=== PATIENT | female | born 1995 | race Caucasian/White ===

== ENCOUNTER → 2019-06-08 | Outpatient (REF) | payer OTHER ==
[~2019-06-08] MED LIST: RALT40TA PO; TRUVTAB PO
[2019-06-08 11:00] LABS: BASO # 0.1 10^3/uL (0.0-0.2); BASO % 0.6 % (0.0-1.0); EOS # 0.1 10^3/uL (0.0-0.5); EOS % 0.6 % (0.0-3.0); HEMATOCRIT 46.1 % (36.0-47.0); HEMOGLOBIN 14.4 g/dl (12.0-15.5); LYMPH # 2.2 10^3/uL (1.5-5.0); LYMPH % 21.4 % (24.0-44.0); MEAN CORPUSCULAR HEMOGLOBIN 28.1 pg (27.0-33.0); MEAN CORPUSCULAR HGB CONC 31.2 g/dl (32.0-36.5); MONO # 0.6 10^3/uL (0.0-0.8); MONO % 5.9 % (0.0-5.0); NEUTROPHILS # 7.2 10^3/uL (1.5-8.5); NEUTROPHILS % 71.2 % (36.0-66.0); PLATELET COUNT, AUTOMATED 268 10^3/uL (150-450); RED BLOOD COUNT 5.12 10^6/uL (4.00-5.40); WHITE BLOOD COUNT 10.1 10^3/uL (4.0-10.0)
[2019-06-08 11:20] LABS: ALBUMIN 4.2 GM/DL (3.2-5.2); ALT/SGPT 36 U/L (12-78); BILIRUBIN,TOTAL 0.8 MG/DL (0.2-1.0); BLOOD UREA NITROGEN 10 MG/DL (7-18); CARBON DIOXIDE LEVEL 30 MEQ/L (21-32); CHLORIDE LEVEL 108 MEQ/L (98-107); CREATININE FOR GFR 0.71 MG/DL (0.55-1.30); GLOMERULAR FILTRATION RATE > 60.0 (>60); GLUCOSE, FASTING 86 MG/DL (70-100); POTASSIUM SERUM 4.3 MEQ/L (3.5-5.1); SODIUM LEVEL 143 MEQ/L (136-145); TOTAL PROTEIN 7.8 GM/DL (6.4-8.2)
[2019-06-08 11:38] LABS: HEPATITIS B SURFACE ANTIGEN NEGATIVE (NEGATIVE)
[2019-06-08 12:06] LABS: HEPATITIS C VIRUS ABY INDEX 0.1 INDEX (<0.8)
[2019-06-08 12:07] LABS: HIV 1&2 SCREEN CENTAUR NEGATIVE (NEGATIVE)
== END ==
LOC: M SFHCPLAZ 08:33
PROVIDERS: ATTEND Internal Medicine Infectious Disease
DX: T74.21XA Adult sexual abuse, confirmed, initial encounter (principal)

== ENCOUNTER → 2020-08-25 | Outpatient (REF) | payer OTHER ==
[2020-08-25 16:14] LABS: CHLAMYDIA DNA AMPLIFICATION NEGATIVE (NEGATIVE); GC DNA AMPLIFICATION NEGATIVE (NEGATIVE)
== END ==
LOC: M SFHCWAGY 13:37
PROVIDERS: ATTEND Nurse Practitioner Women's Health
DX: Z11.3 Encounter for screening for infections with a predominantly sexual mode of transmission (principal)

== ENCOUNTER → 2020-08-25 | Outpatient (REF) | payer OTHER | LOC: M SFHCWAGY 13:41 | PROVIDERS: ATTEND Nurse Practitioner Women's Health | DX: Z12.4 Encounter for screening for malignant neoplasm of cervix (principal) ==

== ENCOUNTER 2021-01-22 20:45 | Day surgery (SDC) | payer OTHER ==
[~2021-01-22] VITALS: Ht 170.2 cm; Wt 122.2 kg
[~2021-01-22 20:45] MED LIST changes: +EMTR1TAB16 PO; -TRUVTAB PO
[2021-01-22] MEDS ORDERED: MAPA500C PO (21:02)
[2021-01-22] MEDS ORDERED: MIDOTAB PO (21:02)
[2021-01-22 21:48] LABS: BASO # 0.1 10^3/uL (0.0-0.2); BASO % 0.6 % (0.0-1.0); EOS # 0.1 10^3/uL (0.0-0.5); EOS % 0.5 % (0.0-3.0); HEMOGLOBIN 14.2 g/dl (12.0-15.5); LYMPH % 18.7 % (24.0-44.0); MEAN CORPUSCULAR HEMOGLOBIN 27.6 pg (27.0-33.0); MEAN CORPUSCULAR HGB CONC 32.3 g/dl (32.0-36.5); MEAN CORPUSCULAR VOLUME 85.6 fl (80.0-96.0); MONO # 0.8 10^3/uL (0.0-0.8); MONO % 4.6 % (2.0-8.0); NEUTROPHILS # 12.3 10^3/uL (1.5-8.5); NEUTROPHILS % 75.1 % (36.0-66.0); PLATELET COUNT, AUTOMATED 290 10^3/uL (150-450); RED BLOOD COUNT 5.14 10^6/uL (4.00-5.40); WHITE BLOOD COUNT 16.3 10^3/uL (4.0-10.0)
[2021-01-22 22:16] LABS: HCG, SERUM QUALITATIVE NEGATIVE (NEGATIVE)
[2021-01-22 22:23] LABS: ALBUMIN 4.1 GM/DL (3.2-5.2); ALT/SGPT 68 U/L (12-78); BILIRUBIN,DIRECT 0.1 MG/DL (0.0-0.2); BILIRUBIN,TOTAL 0.6 MG/DL (0.2-1.0); BLOOD UREA NITROGEN 9 MG/DL (7-18); CALCIUM LEVEL 9.1 MG/DL (8.5-10.1); CARBON DIOXIDE LEVEL 24 MEQ/L (21-32); CHLORIDE LEVEL 108 MEQ/L (98-107); CREATININE FOR GFR 0.62 MG/DL (0.55-1.30); GLOMERULAR FILTRATION RATE > 60.0 (>60); GLUCOSE, FASTING 89 MG/DL (70-100); LIPASE 59 U/L (73-393); POTASSIUM SERUM 3.8 MEQ/L (3.5-5.1); SODIUM LEVEL 140 MEQ/L (136-145); TOTAL PROTEIN 7.5 GM/DL (6.4-8.2)
[2021-01-22] MEDS ORDERED: GI COCKTAIL 50ML BTL(HYOSCYAMINE/MAALOX/LIDOCAINE VISCOUS)(1:3:1) PO ONE (22:55)
[2021-01-22] MEDS ORDERED: NS 1,000 ML IV ONE (23:00)
[2021-01-22] MEDS ORDERED: PROMETHAZINE INJ 25 MG/ML VIAL (J2550) IV ONE (23:40)
[2021-01-23] MEDS: GASTROGRAFIN SOLUTION 30ML PO SCH ×2 (00:29→00:47)
[2021-01-23] MEDS: MORPHINE 2 MG/ML 1ML VIAL (J2270) IV PRN ×2 (00:29→04:03)
[2021-01-23] MEDS ORDERED: ISOVUE-370 76% 100ML VIAL As Ordered ONE (01:38)
--- NOTE | 2021-01-23 02:59 | REPVR ---
PROCEDURE INFORMATION: Exam: CT Abdomen And Pelvis With Contrast Exam date and time: 01/23/2021 1:45 AM Age: 25 years old Clinical indication: Abdominal pain; Epigastric; Additional info: Epigastric pain TECHNIQUE: Imaging protocol: Computed tomography of the abdomen and pelvis with contrast. Radiation optimization: All CT scans at this facility use at least one of these dose optimization techniques: automated exposure control; mA and/or kV adjustment per patient size (includes targeted exams where dose is matched to clinical indication); or iterative reconstruction. Contrast material: ISOVUE 370; Contrast volume: 100 ml; Contrast route: INTRAVENOUS (IV); COMPARISON: No relevant prior studies available. FINDINGS: Liver: Hepatomegaly and steatosis. 1.6 cm hyperattenuating lesion in the left hepatic lobe Gallbladder and bile ducts: Cholelithiasis. Gallbladder is distended and demonstrates wall thickening and pericholecystic fat stranding. There is hyperemia in the adjacent liver parenchyma. Suspect acute cholecystitis. Pancreas: Normal. No ductal dilation. Spleen: Normal. No splenomegaly. Adrenal glands: Normal. No mass. Kidneys and ureters: Normal. No hydronephrosis. Stomach and bowel: Unremarkable. No obstruction. No mucosal thickening. Appendix: No evidence of appendicitis. Intraperitoneal space: Unremarkable. No free air. No significant fluid collection. Vasculature: Unremarkable. No abdominal aortic aneurysm. Lymph nodes: Unremarkable. No enlarged lymph nodes. Urinary bladder: Unremarkable as visualized. Reproductive: Unremarkable as visualized. Bones/joints: Bilateral L5 pars interarticularis defects. Mild degenerative disease at L5-S1. Soft tissues: Unremarkable. Other findings: The study is degraded by motion. IMPRESSION: The study is degraded by motion. Cholelithiasis and findings concerning for acute cholecystitis. Hepatomegaly and steatosis. 1.6 cm hyperattenuating lesion in the left hepatic lobe No bowel obstruction. Normal appendix. No hydronephrosis or nephrolithiasis bilaterally. Electronically signed by: Beau De Leon On 01/23/2021 02:58:22 AM
[2021-01-23] MEDS ORDERED: PIPERACILLIN/TAZOBACTAM SOD 3.375 GM in D5W MINI-BAG PLUS 50 ML IV ONE (03:45)
[2021-01-23] MEDS ORDERED: NS 500 ML IV ONE (03:50)
--- NOTE | 2021-01-23 03:53 | REPVR ---
PROCEDURE INFORMATION: Exam: US Abdomen, Limited; Right Upper Quadrant Exam date and time: 01/23/2021 3:28 AM Age: 25 years old Clinical indication: Abdominal pain; Acute; Additional info: Gallstones, abdominal pain TECHNIQUE: Imaging protocol: US abdomen. Real time ultrasound with image documentation. Limited exam focused on the right upper quadrant. COMPARISON: CT ABD/PEL W/IV ORAL CONTRAS 01/23/2021 1:37 AM FINDINGS: Liver: Hepatomegaly and steatosis. Solid 1.8 x 1.5 x 2.2 cm left hepatic lobe lesion likely corresponding to the hyperattenuating mass seen on the recent CT scan. Gallbladder: Cholelithiasis. Gallbladder is mildly distended and demonstrates mild wall thickening. Negative sonographic Bonner sign. Common bile duct: Normal. No stones. No dilation. Pancreas: Visualized pancreas is unremarkable. Right kidney: Normal. No mass. No hydronephrosis. IMPRESSION: Hepatomegaly and steatosis. Solid 1.8 x 1.5 x 2.2 cm left hepatic lobe lesion likely corresponding to the hyperattenuating mass seen on the recent CT scan. Recommend further characterization with dedicated [address] or MRI. Cholelithiasis. Findings equivocal for acute cholecystitis. Electronically signed by: Beau De Leon On 01/23/2021 03:52:50 AM
[2021-01-23] MEDS ORDERED: KETOROLAC 30 MG/ML 1ML VIAL IV PRN (04:05)
[2021-01-23] MEDS ORDERED: MORPHINE 2 MG/ML 1ML VIAL (J2270) IV PRN ×2 (04:05→19:40)
[2021-01-23 04:27] LABS: RSV AMPLIFICATION NEGATIVE (NEGATIVE)
[2021-01-23] MEDS: PANTOPRAZOLE 40MG VIAL (C9113 PER 1) IV SCH (09:33)
[2021-01-23] MEDS: NS 1,000 ML IV SCH ×2 (09:33→22:31)
[2021-01-23] MEDS ORDERED: PIPERACILLIN/TAZOBACTAM SOD 3.375 GM in D5W MINI-BAG PLUS 50 ML IV SCH (10:00)
[2021-01-23 12:00] VITALS: BP 120/86
[2021-01-23] MEDS: ONDANSETRON 4MG/2ML VIAL IV PRN ×2 (12:33→21:08)
[2021-01-23] MEDS ORDERED: BUPIVACAINE HCL 0.25% 30ML VIAL As Ordered ONE (13:38)
[2021-01-23 16:00] VITALS: BP 133/80
[2021-01-23] MEDS ORDERED: ZOSYN 3.375GM VIAL (J2543) As Ordered ONE (16:41)
[2021-01-23] MEDS ORDERED: ROCURONIUM BROMIDE 50 MG/5 ML VIAL As Ordered ONE ×2 (17:09→17:28)
[2021-01-23] MEDS ORDERED: fentaNYL 100 MCG/2 ML INJECTION (J3010) As Ordered ONE (17:09)
[2021-01-23] MEDS ORDERED: MIDAZOLAM INJ 2MG/2ML VIAL (J2250 PER 1MG) As Ordered ONE (17:09)
[2021-01-23] MEDS ORDERED: LIDOCAINE 2% 100MG/5ML SDV (FOR ANES.) As Ordered ONE (17:09)
[2021-01-23] MEDS ORDERED: dexameTHASONE 4 MG/ML 1ML VIAL (J1100 PER 1MG) As Ordered ONE (17:09)
[2021-01-23] MEDS ORDERED: ONDANSETRON 4MG/2ML VIAL As Ordered ONE (17:09)
[2021-01-23] MEDS ORDERED: propofoL 200 MG/20 ML VIAL As Ordered ONE (17:09)
[2021-01-23] MEDS ORDERED: ACETAMINOPHEN 1000MG 100ML IV BTL (OFIRMEV) (J0131 PER 10MG) As Ordered ONE (17:25)
[2021-01-23] MEDS ORDERED: HYDROmorphone HCL 2 MG/ML 1ML VIAL (J1170) As Ordered ONE (17:56)
[2021-01-23] MEDS ORDERED: ESMOLOL INJ 100MG/10ML VIAL As Ordered ONE (17:59)
[2021-01-23] MEDS ORDERED: SUGAMMADEX SODIUM 500 MG/5 ML VIAL (BRIDION) As Ordered ONE (18:01)
[2021-01-23] MEDS ORDERED: IBUPROFEN 600MG TAB PO PRN (19:40)
[2021-01-23] MEDS ORDERED: LR 1,000 ML IV SCH (19:40)
[2021-01-23] MEDS ORDERED: ACETAMINOPHEN TAB 650MG DOSE (2X325MG) PO PRN (19:40)
[2021-01-23] MEDS ORDERED: ONDANSETRON 4MG/2ML VIAL IV PRN (19:40)
[2021-01-23] MEDS ORDERED: fentaNYL 100 MCG/2 ML INJECTION (J3010) IV PRN (19:40)
[2021-01-23] MEDS ORDERED: NORCO, ANEXSIA 5/325MG TABLET (HYDROcodone/ACETAMINOPHEN) PO PRN (19:40)
[2021-01-23] MEDS ORDERED: oxyCODONE 5MG TAB PO PRN (19:40)
--- NOTE | 2021-01-23 21:26 | ECGEPIP ---
[facility] - ED Test Date: 2021-01-22 Pat Name: KIMBER JOSUE Department: Room: [place] [address] Gender: Female Senior Tax Accountant: LENARD : 1995 Requested By: ROBERTO Wilde Order Number: [id number] Reading MD: Marcia Bhatti Measurements Intervals [place] Rate: 63 P: 13 WV: 134 QRS: 44 QRSD: 92 T: 28 QT: 420 QTc: 429 Interpretive Statements normal sinus rhythm No prior Electronically Signed on 01-23-2021 21:25:37 EDT by Marcia Bhatti
[2021-01-23] MEDS ORDERED: METOCLOPRAMIDE INJ 10MG/2ML VIAL (J2765 PER 1) As Ordered ONE (21:31)
[2021-01-23] MEDS ORDERED: METOCLOPRAMIDE INJ 10MG/2ML VIAL (J2765 PER 1) IV PRN (21:35)
[2021-01-24 01:29] VITALS: BP 128/88
[2021-01-24 05:02] VITALS: BP 115/59
--- NOTE | 2021-01-24 06:44 | RO ---
OPERATIVE NOTE DATE OF OPERATION: 01/23/2021 PREOPERATIVE DIAGNOSIS: Cholelithiasis with acute cholecystitis. POSTOPERATIVE DIAGNOSIS: Cholelithiasis with acute cholecystitis. PROCEDURE PERFORMED: Laparoscopic cholecystectomy. SURGEON: Jack Piña MD AIR[employer] B[employer] REPAIRER: Levi Kirkland, third year medical student ANESTHESIA: General. INDICATIONS FOR THE PROCEDURE: The patient is a 25-year-old woman who presented to the emergency department at [facility] on the late evening of the 22 of January. She complained of severe upper abdominal pain with some associated nausea and vomiting. Evaluation revealed some tenderness in the upper abdomen particularly in the right upper quadrant. She had a white count elevated to 16,000 and an ultrasound showed cholelithiasis with a distended gallbladder. CT scan was also obtained, confirming a distended gallbladder with stones and evidence for some mild gallbladder wall thickening. Her symptoms and signs and laboratory studies were felt to be consistent with acute cholecystitis secondary to cholelithiasis and she was admitted for management. She is now for a laparoscopic cholecystectomy. OPERATIVE PROCEDURE: The patient was brought to the operating room and placed on the table in a supine position. She was placed under general endotracheal anesthesia. The patient's abdomen was prepped and draped in a sterile fashion. 1/4% Marcaine was infiltrated at the trocar sites as needed. A short supraumbilical midline incision was made. A Veress needle was inserted and after a positive hanging drop test, the abdomen was insufflated with carbon dioxide gas. The fascia was then scored with a scalpel and a 12 mm port was placed without difficulty. The laparoscope was inserted. Initial examination showed no evidence of trocar injury. There was abundant omentum obscuring much of the bowel but there was some small bowel that appeared normal. The liver appeared somewhat blunted at the edges with a more than usual yellowish coloration suggestive of some fatty infiltration. The gallbladder was noted and was quite distended with evidence for some edema. A 5 mm port was placed in the left upper quadrant and two 5 mm ports were placed in the right upper quadrant. The patient was rolled slightly to the left and tilted to a reverse Trendelenburg position. Graspers were inserted. There were some adhesions of the omentum to the body and fundus of the gallbladder and these were lysed using the hook cautery. The gallbladder was tensely distended and could not be grasped so the gallbladder was aspirated using a 30 mL syringe. Approximately 50 mL of clear and colorless fluid was aspirated from the gallbladder. It was clear that the gallbladder tirado remained quite thickened and edematous. The gallbladder was grasped and elevated. Dissection continued to free the gallbladder from some surrounding adhesions to the omentum. The distal body and neck of the gallbladder were then identified and the peritoneum around the pericholecystic area was opened using the hook cautery. Dissection proceeded along the gallbladder neck. The cystic duct was clearly identified. Two adjacent arterial branches were identified coming from the medial aspect, one headed toward the medial aspect of the gallbladder and the other going toward the hepatic or lateral aspect of the gallbladder. The arterial branches were clipped and divided. Some further dissection of the cystic duct was performed to achieve a better exposure and the duct was doubly clipped with hemoclips and divided. The gallbladder was then dissected free from the gallbladder bed using cautery dissection. There was some bleeding from the gallbladder bed where the hepatic tissue had been entered in a small area and this was controlled with the cautery. The gallbladder was placed in an Endopouch and set aside for later removal. The right upper quadrant was irrigated and inspected. Several small oozing points on the gallbladder bed were controlled with the cautery. Final inspection revealed no evidence of bleeding or bile leak. The patient was returned to a flat position. The abdomen was deflated and the trocars were removed. The gallbladder was too large to fit through the existing supraumbilical site and necessitated extending the skin and fascial incisions slightly. The gallbladder was then passed. There was one stone in the gallbladder neck that was approximately 2 cm in diameter with multiple other smaller stones identified. The peritoneum at the supraumbilical site was closed with a single suture of 2-0 Vicryl. The fascia was closed with a running suture of 2-0 PDS. The skin incisions were all closed with buried sutures of 4-0 Vicryl and Steri-Strips. Light dressings were applied. The patient tolerated the procedure well without apparent complication. She was awakened in the operating room, extubated and moved to the recovery room in stable condition. SOLOMON
[2021-01-24] MEDS: PANTOPRAZOLE 40MG VIAL (C9113 PER 1) IV SCH (09:03)
[2021-01-24] MEDS ORDERED: HYDR-3715 PO (09:42)
[2021-01-24 10:00] VITALS: BP 114/61
--- NOTE | 2021-01-24 14:40 | IPNPDOC ---
Text Note Date of Service The patient was seen on 01/24/21. NOTE General surgery. Dr. Pñia The patient is a 25-year-old female admitted with acute cholecystitis status post laparoscopic cholecystectomy as per Dr. Piña 01/23/2021. The patient is sitting up in bed eating breakfast this morning. States pain is well controlled. Used a dose of Tylenol at 3:30 AM. Denies nausea or vomiting. Has been out of bed to the bathroom. Afebrile. VSS MMM Lungs are clear to auscultation S1-S2 regular rate rhythm Abdomen is soft, nondistended, mild tenderness around surgical sites only. Surgical sites are clean/dry/intact. Extremities with no edema No new labs today Assessment/plan Acute cholecystitis status post laparoscopic cholecystectomy 01/23/[address] Piña. The patient is recovering well, pain has been well controlled, tolerating regular diet. Surgical incisions are clean/dry/intact. Has been out of bed ambulating in the room. The patient feels ready for discharge. The patient is reviewed with Dr. Piña. Plan for discharge today. Follow-up in the office in 2 weeks. VS,Fishbone, I+O VS, Fishbone, I+O Vital Signs Date Time Temp Pulse Resp B/P (MAP) Pulse Ox O2 Delivery O2 Flow Rate FiO2 01/24/21 10:00 99.3 86 15 114/61 (78) 98 Room Air 01/24/21 01:29 2.0 I&O- Last 24 Hours up to 6 AM 01/24/21 06:00 Intake Total 1570 ml Output Total 300 ml Balance 1270 ml Attending Note Attending Note I agree with note by Lela. Will discharge today. Lela Trejo Jan 24, 2021 14:40 Jack Piña Jan 30, 2021 17:51
== END 2021-01-24 13:10 | disposition home or self-care (01) ==
LOC: M ED 20:45 → UNDOADMOB 20:46 → M ED INP 20:46 → M MS5PR 01-23 22:00 → M ED INP 01-23 22:00 → M SDC 01-23 22:00 → M MS5PR 01-23 22:00 → M SDC 01-24 10:11
PROVIDERS: ATTEND Surgery
DX: K80.12 Calculus of gallbladder with acute and chronic cholecystitis without obstruction (principal); R51.9 Headache, unspecified; F17.200 Nicotine dependence, unspecified, uncomplicated
CPT/HCPCS: 47562; 76705; 80048; 80076; 81001; 83605; 83690; 84703; 85025; 87631; 88304; 93005; 96361; 96365; 96366; 96375; 96376; 99284; C9113; J0131; J1100; J1170; J1885; J2250; J2270; J2405; J2543; J2765; J3010; Q9963; Q9967

== ENCOUNTER → 2021-03-17 | Outpatient (CLI) | payer OTHER ==
[~2021-03-17] MED LIST changes: +HYDR-3715 PO; +MAPA500C PO; +MIDOTAB PO; +PROHANCE 279.3MG/ML 15ML VIAL As Ordered ONE; +PROHANCE 279.3MG/ML 5ML VIAL As Ordered ONE
--- NOTE | 2021-03-17 19:19 | REP ---
INDICATION: BENIGN EDEN OF LIVER. COMPARISON: Ultrasound and CT 01/23/2021. TECHNIQUE: Multiple sequences obtained in the axial coronal planes prior to and following the intravenous administration of 20 cc ProHance. FINDINGS: There is a hepatomegaly. The length of the liver is 23.2 cm. There is diffuse fatty infiltration of the liver. In the lateral segment of the left lobe of the liver, as seen on the recent CT exam, there is a 2 cm oval nodule. This is slightly hyperintense on the T2 fat-sat images, isointense on the routine T2 images. This does demonstrate initial heterogeneous enhancement, which persists and becomes more homogeneous throughout delayed imaging. There has been a cholecystectomy. There is no evidence of biliary dilatation. The spleen is normal in size with no intrinsic abnormality. The adrenal glands are normal. The pancreas demonstrates no mass or evidence of pancreatic duct dilatation. The kidneys demonstrate no mass or hydronephrosis. There is no adenopathy or free fluid in the abdomen. IMPRESSION: Hepatomegaly. Diffuse fatty infiltration of the liver. Enhancing nodule again seen in the lateral segment of the left lobe of the liver. This is a nonspecific finding. Differential diagnosis would include atypical hemangioma, a focal island of regenerating liver tissue, or adenoma. Malignancy is felt to be unlikely in a patient of this age without a primary neoplasm or significant risk factors. There has been no change since the prior CT exam. <Electronically signed by Azael Mancilla > 03/17/211914
== END ==
LOC: M RAD 17:39
PROVIDERS: ATTEND Surgery
DX: K76.0 Fatty (change of) liver, not elsewhere classified (principal); D13.4 Benign neoplasm of liver
CPT/HCPCS: 74183; A9576

== ENCOUNTER → 2023-09-16 | Outpatient (REF) ==
[~2023-09-16] MED LIST changes: -PROHANCE 279.3MG/ML 15ML VIAL As Ordered ONE; -PROHANCE 279.3MG/ML 5ML VIAL As Ordered ONE
== END ==
LOC: M EMP 08:04
PROVIDERS: ATTEND Family Medicine
DX: Z11.52 Encounter for screening for COVID-19 (principal)

== ENCOUNTER → 2023-11-14 | Outpatient (REF) ==
[2023-11-14 11:42] LABS: RSV AMPLIFICATION NEGATIVE (NEGATIVE)
== END ==
LOC: M EMP 09:37
PROVIDERS: ATTEND Family Medicine
DX: Z11.52 Encounter for screening for COVID-19 (principal)

== ENCOUNTER → 2023-11-19 | Outpatient (REF) | payer SELFPAY, OTHER ==
[2023-11-19 16:18] LABS: Trichomonas vaginalis (AMP) NOT DETECTED (NEGATIVE)
[2023-11-19 16:42] LABS: GC DNA AMPLIFICATION NEGATIVE (NEGATIVE)
== END ==
LOC: M SFHCWAGY 14:59
PROVIDERS: ATTEND Nurse Practitioner Family
DX: Z12.4 Encounter for screening for malignant neoplasm of cervix (principal); Z11.3 Encounter for screening for infections with a predominantly sexual mode of transmission; N73.9 Female pelvic inflammatory disease, unspecified
CPT/HCPCS: 87070; 87077; 87624; 87661; 87810; 87850; G0123

== ENCOUNTER → 2024-11-26 | Outpatient (CLI) | payer OTHER ==
[2024-11-26 17:11] LABS: HEMOGLOBIN A1c 5.5 % (4.0-6.0)
[2024-11-26 17:34] LABS: FREE T4 1.21 NG/DL (0.89-1.76); THYROID STIMULATING HORMONE 1.362 uIU/ML (0.55-4.78)
[2024-11-26 17:35] LABS: LUTEINIZING HORMONE 12.7 mIU/ML
[2024-11-26 17:38] LABS: FOLLICLE STIMULATING HORMONE 5.6 mIU/ML; PROLACTIN 10.64 NG/ML
[2024-11-26 17:40] LABS: ESTRADIOL 104.6 PG/ML
[2024-11-26 17:44] LABS: PROGESTERONE 0.52 NG/ML
[2024-12-03 19:17] LABS: TESTOSTERONE FREE (DIRECT) 9.2 pg/mL (0.1-6.4)
== END ==
LOC: M PLALAB 12:23
PROVIDERS: ATTEND Nurse Practitioner Family
DX: N92.6 Irregular menstruation, unspecified (principal)

== ENCOUNTER → 2025-05-09 | Outpatient (CLI) | payer OTHER | LOC: M RAD 12:33 | DX: S99.911A Unspecified injury of right ankle, initial encounter (principal); M79.89 Other specified soft tissue disorders; Q74.8 Other specified congenital malformations of limb(s); X50.1XXA Overexertion from prolonged static or awkward postures, initial encounter; Y92.9 Unspecified place or not applicable; Y93.9 Activity, unspecified; Y99.9 Unspecified external cause status ==